=== PATIENT | female | born 1980 | race Caucasian/White ===

== ENCOUNTER 2020-02-06 11:17 | Emergency (ER) | payer OTHER ==
[~2020-02-06] VITALS: Ht 165.1 cm; Wt 120.2 kg
[2020-02-06] MEDS ORDERED: NORVASC10 MG PO (11:27)
[2020-02-06] MEDS ORDERED: HYDROCHLOROTHIAZIDE PO (11:28)
== END 2020-02-07 14:45 | disposition home or self-care (01) ==
LOC: ER 11:17
DX: N20.1 Calculus of ureter (principal); E87.6 Hypokalemia; R51 Headache; Z03.818 Encounter for observation for suspected exposure to other biological agents ruled out